=== PATIENT | male | born 1990 | race Caucasian/White ===

== ENCOUNTER 2016-10-23 05:40 | Observation (INO) | payer SELFPAY ==
--- NOTE | 2016-10-23 05:53 | ERPHSYRPT ---
- History of Present Illness Time Seen by Provider: 10/23/16 05:45 Source: EMS Exam Limitations: no limitations Physician History: ABOUT 1 HOUR AGO PT HAD A SEIZURE AT THE [facility] AND A 30 SECOND SEIZURE IN THE AMBULANCE. PT WILL NOT ANSWER MY QUESTIONS. Allergies/Adverse Reactions: No Known Drug Allergies Allergy (Unverified 10/23/16 07:08) Home Medications: Levetiracetam [Keppra] 10/23/16 [History] - Review of Systems All Other Systems: Unable due to condition (PT WILL NOT ANSWER MY QUESTIONS) - Nursing Vital Signs Nursing Vital Signs: Initial Vital Signs Temperature 97.3 F Temperature Source Axillary Pulse Rate 103 Respiratory Rate 18 Blood Pressure [Right Arm] 136/68 Pain Intensity 0 - Physical Exam General Appearance: lethargy Eye Exam: other (PERRL) Ears, Nose, Throat Exam: TMs normal, pharynx normal, moist mucous membranes Neck Exam: normal inspection Respiratory Exam: lungs clear Cardiovascular Exam: tachycardia Gastrointestinal/Abdomen Exam: soft, normal bowel sounds Back Exam: normal inspection Extremity Exam: normal inspection, No pedal edema Neurologic Exam: other (OBTUNDED) Skin Exam: warm, dry SpO2 Interpretation: normal SpO2: 95 Oxygen Delivery: Room Air - Course Nursing assessment & vital signs reviewed: Yes EKG Interpreted by Me: RATE ([id number]), Sinus Tach, NORMAL AXIS, NORMAL INTERVALS Ordered Tests: Active Orders 24 hr Category Date Time Status Accucheck STAT Care 10/23/16 05:52 Active Cath for Specimen-Straight STAT Care 10/23/16 05:52 Active EKG-ER Only STAT Care 10/23/16 06:45 Active IV Insertion STAT Care 10/23/16 05:52 Active CHEST 1 VIEW (PORTABLE) Stat Exams 10/23/16 06:46 Taken HEAD WITHOUT CONTRAST [CT] Stat Exams 10/23/16 05:56 Taken ACETAMINOPHEN Stat Lab 10/23/16 05:50 Completed AMYLASE Stat Lab 10/23/16 05:50 Completed CBC W DIFF Stat Lab 10/23/16 05:50 Completed CMP Stat Lab 10/23/16 05:50 Completed Ethyl Alcohol,Urine Stat Lab 10/23/16 05:50 Completed LIPASE Stat Lab 10/23/16 05:50 Completed MAGNESIUM Stat Lab 10/23/16 05:50 Completed Manual Differential NC Stat Lab 10/23/16 05:50 Completed SALICYLATE Stat Lab 10/23/16 05:50 Completed TROPONIN Q3H Lab 10/23/16 05:50 Completed TROPONIN Q3H Lab 10/23/16 10:00 Ordered TROPONIN Q3H Lab 10/23/16 13:00 Ordered TROPONIN Q3H Lab 10/23/16 16:00 Ordered TROPONIN Q3H Lab 10/23/16 19:00 Ordered UA W/ MICROSCOPIC Stat Lab 10/23/16 05:50 Completed Urine Triage Profile Stat Lab 10/23/16 05:50 Completed Medication Summary Generic Name Dose Route Start Last Admin Trade Name Freq PRN Reason Stop Dose Admin Sodium Chloride 1,000 mls @ 100 mls/hr 10/23/16 06:30 10/23/16 06:27 Sodium Chloride 0.9% 1000 Ml IV 11/22/16 06:29 100 mls/hr .Q10H OLIVA Administration Discontinued Medications Generic Name Dose Route Start Last Admin Trade Name Freq PRN Reason Stop Dose Admin Sodium Chloride Confirm 10/23/16 06:26 Sodium Chloride 0.9% 1000 Ml Administered 10/23/16 06:27 Dose 1,000 mls @ ud .ROUTE .STK-MED ONE Levetiracetam 1,000 mg/ 110 mls @ 220 mls/hr 10/23/16 06:42 Dextrose IV 10/23/16 07:11 STAT ONE Levetiracetam Confirm 10/23/16 07:05 Keppra 500 Mg/5 Ml Administered 10/23/16 07:06 Dose 1,000 mg .ROUTE .STK-MED ONE Lab/Rad Data: Laboratory Result Diagrams 10/23/16 05:50 10/23/16 05:50 Laboratory Results 10/23/16 10/23/16 10/23/16 Range/Units 05:50 05:50 05:50 WBC (4.0-10.5) K/mm3 RBC (4.1-5.6) M/mm3 Hgb (12.5-18.0) gm/dl Hct (42-50) % MCV (78-100) fl MCH (26-32) pg MCHC (32-36) g/dl RDW (11.5-14.0) % Plt Count (150-450) K/mm3 MPV (6-9.5) fl Gran % (36.0-66.0) % Lymphocytes % (24.0-44.0) % Monocytes % (0.0-12.0) % Eosinophils % (0.00-5.0) % Basophils % (0.0-0.4) % Segmented Neutrophils (36.-66.) % Band Neutrophils (0.0-2.0) % Lymphocytes (Manual) (24-44) % Monocytes (Manual) (0.0-12.0) % Basophils # (0-0.4) Differential Comment Platelet Estimate (NORMAL) Sodium (136-145) mEq/L Potassium (3.5-5.1) mEq/L Chloride (98-107) mEq/L Carbon Dioxide (21-32) mEq/L Anion Gap (5-15) MEQ/L BUN (9-20) mg/dL Creatinine (0.55-1.30) mg/dl Estimated GFR ML/MIN Glucose (70-110) MG/DL Calcium (8.5-10.1) mg/dL Magnesium 3.5 H (1.8-2.4) mg/dL Total Bilirubin (0.2-1.0) mg/dL AST (15-37) U/L ALT (12-78) U/L Alkaline Phosphatase (46-116) U/L Troponin I < 0.017 (0.000-0.056) ng/ml Serum Total Protein (6.4-8.2) gm/dL Albumin (3.4-5.0) g/dL Amylase 39 (25-115) U/L Lipase 82 (73-393) U/L Ur Collection Type Urine Color (YELLOW) Urine Appearance (CLEAR) Urine pH (5-6) Ur Specific [place] (1.005-1.025) Urine Protein (Negative) Urine Glucose (UA) (NEGATIVE) mg/dL Urine Ketones (NEGATIVE) Urine Nitrite (NEGATIVE) Urine Bilirubin (NEGATIVE) Urine Urobilinogen (0-1) mg/dL Urine WBC (Auto) (NEGATIVE) Urine RBC (Auto) (0-5) Dex/ul Urine Microscopic RBC (0-2) /HPF Amorphous Crystals (NEGATIVE) /HPF Urine Bacteria (NEGATIVE) /HPF Urine Mucus (NEGATIVE) /HPF Salicylates < 2.8 L (2.8-20.0) mg/dl Urine Opiates Level (NEGATIVE) Ur Methadone (NEGATIVE) Acetaminophen < 2.0 L (10-30) ug/ml Urine Barbiturates (NEGATIVE) Ur Phencyclidine (PCP) (NEGATIVE) Urine Amphetamine (NEGATIVE) U Benzodiazepine Level (NEGATIVE) Urine Cocaine (NEGATIVE) Urine Marijuana (THC) (NEGATIVE) Urine Ethyl Alcohol (0.00-20) mg/dl Specimen Received 10/23/16 10/23/16 10/23/16 Range/Units 05:50 05:50 05:50 WBC (4.0-10.5) K/mm3 RBC (4.1-5.6) M/mm3 Hgb (12.5-18.0) gm/dl Hct (42-50) % MCV (78-100) fl MCH (26-32) pg MCHC (32-36) g/dl RDW (11.5-14.0) % Plt Count (150-450) K/mm3 MPV (6-9.5) fl Gran % (36.0-66.0) % Lymphocytes % (24.0-44.0) % Monocytes % (0.0-12.0) % Eosinophils % (0.00-5.0) % Basophils % (0.0-0.4) % Segmented Neutrophils (36.-66.) % Band Neutrophils (0.0-2.0) % Lymphocytes (Manual) (24-44) % Monocytes (Manual) (0.0-12.0) % Basophils # (0-0.4) Differential Comment Platelet Estimate (NORMAL) Sodium (136-145) mEq/L Potassium (3.5-5.1) mEq/L Chloride (98-107) mEq/L Carbon Dioxide (21-32) mEq/L Anion Gap (5-15) MEQ/L BUN (9-20) mg/dL Creatinine (0.55-1.30) mg/dl Estimated GFR ML/MIN Glucose (70-110) MG/DL Calcium (8.5-10.1) mg/dL Magnesium (1.8-2.4) mg/dL Total Bilirubin (0.2-1.0) mg/dL AST (15-37) U/L ALT (12-78) U/L Alkaline Phosphatase (46-116) U/L Troponin I (0.000-0.056) ng/ml Serum Total Protein (6.4-8.2) gm/dL Albumin (3.4-5.0) g/dL Amylase (25-115) U/L Lipase (73-393) U/L Ur Collection Type CATH Urine Color YELLOW (YELLOW) Urine Appearance CLEAR (CLEAR) Urine pH 5.5 5.5 (5-6) Ur Specific [place] >=1.030 (1.005-1.025) Urine Protein 100 (Negative) Urine Glucose (UA) NEGATIVE (NEGATIVE) mg/dL Urine Ketones NEGATIVE (NEGATIVE) Urine Nitrite NEGATIVE (NEGATIVE) Urine Bilirubin NEGATIVE (NEGATIVE) Urine Urobilinogen 0.2 (0-1) mg/dL Urine WBC (Auto) NEGATIVE (NEGATIVE) Urine RBC (Auto) MODERATE (0-5) Dex/ul Urine Microscopic RBC 2-5 (0-2) /HPF Amorphous Crystals FEW (NEGATIVE) /HPF Urine Bacteria FEW (NEGATIVE) /HPF Urine Mucus MODERATE (NEGATIVE) /HPF Salicylates (2.8-20.0) mg/dl Urine Opiates Level NEG. (NEGATIVE) Ur Methadone NEG. (NEGATIVE) Acetaminophen (10-30) ug/ml Urine Barbiturates NEG. (NEGATIVE) Ur Phencyclidine (PCP) NEG. (NEGATIVE) Urine Amphetamine NEG. (NEGATIVE) U Benzodiazepine Level NEG. (NEGATIVE) Urine Cocaine NEG. (NEGATIVE) Urine Marijuana (THC) NEG. (NEGATIVE) Urine Ethyl Alcohol 2 (0.00-20) mg/dl Specimen Received 10/23/16 0600 10/23/16 10/23/16 Range/Units 05:50 05:50 WBC 14.3 H (4.0-10.5) K/mm3 RBC 5.68 H (4.1-5.6) M/mm3 Hgb 18.5 H (12.5-18.0) gm/dl Hct 54.6 H (42-50) % MCV 96.1 (78-100) fl MCH 32.5 H (26-32) pg MCHC 33.9 (32-36) g/dl RDW 12.3 (11.5-14.0) % Plt Count 354 (150-450) K/mm3 MPV 10.7 H (6-9.5) fl Gran % 64.0 (36.0-66.0) % Lymphocytes % 20.0 L (24.0-44.0) % Monocytes % 15.5 H (0.0-12.0) % Eosinophils % 0.3 (0.00-5.0) % Basophils % 0.2 (0.0-0.4) % Segmented Neutrophils 53 (36.-66.) % Band Neutrophils 6 H (0.0-2.0) % Lymphocytes (Manual) 26 (24-44) % Monocytes (Manual) 15 H (0.0-12.0) % Basophils # 0.03 (0-0.4) Differential Comment NORMAL Platelet Estimate NORMAL (NORMAL) Sodium 138 (136-145) mEq/L Potassium 3.8 (3.5-5.1) mEq/L Chloride 97 L (98-107) mEq/L Carbon Dioxide 8.2 L* (21-32) mEq/L Anion Gap 36.7 H (5-15) MEQ/L BUN 21 H (9-20) mg/dL Creatinine 1.87 H (0.55-1.30) mg/dl Estimated GFR 47 ML/MIN Glucose 216 H (70-110) MG/DL Calcium 9.6 (8.5-10.1) mg/dL Magnesium (1.8-2.4) mg/dL Total Bilirubin 1.2 H (0.2-1.0) mg/dL AST 20 (15-37) U/L ALT 46 (12-78) U/L Alkaline Phosphatase 108 (46-116) U/L Troponin I (0.000-0.056) ng/ml Serum Total Protein 8.8 H (6.4-8.2) gm/dL Albumin 4.4 (3.4-5.0) g/dL Amylase (25-115) U/L Lipase (73-393) U/L Ur Collection Type Urine Color (YELLOW) Urine Appearance (CLEAR) Urine pH (5-6) Ur Specific [place] (1.005-1.025) Urine Protein (Negative) Urine Glucose (UA) (NEGATIVE) mg/dL Urine Ketones (NEGATIVE) Urine Nitrite (NEGATIVE) Urine Bilirubin (NEGATIVE) Urine Urobilinogen (0-1) mg/dL Urine WBC (Auto) (NEGATIVE) Urine RBC (Auto) (0-5) Dex/ul Urine Microscopic RBC (0-2) /HPF Amorphous Crystals (NEGATIVE) /HPF Urine Bacteria (NEGATIVE) /HPF Urine Mucus (NEGATIVE) /HPF Salicylates (2.8-20.0) mg/dl Urine Opiates Level (NEGATIVE) Ur Methadone (NEGATIVE) Acetaminophen (10-30) ug/ml Urine Barbiturates (NEGATIVE) Ur Phencyclidine (PCP) (NEGATIVE) Urine Amphetamine (NEGATIVE) U Benzodiazepine Level (NEGATIVE) Urine Cocaine (NEGATIVE) Urine Marijuana (THC) (NEGATIVE) Urine Ethyl Alcohol (0.00-20) mg/dl Specimen Received - Progress Progress Note: 10/23/16 07:11 PT IS ALERT AND ORIENTED NOW & DENIES ANY CHEST PAIN, SHORTNESS OF AIR, NAUSEA, VOMITING, ABDOMINAL PAIN, TINGLING/NUMBNESS, WEAKNESS, HEADACHE. PT STATES HE TAKES KEPPRA ONCE/DAY BUT HAS NOT HAD ANY FOR THE PAST MONTH. Discussed with : Sherwin (OBS ICE - [id number]) - Departure Time of Disposition: 07:14 Departure Disposition: Observation Clinical Impression: SEIZURE, TACHYCARDIA Condition: Fair Critical Care Time: No
[2016-10-23 06:07] LABS: BASOPHIL % 0.2 % (0.0-0.4); Eosinophil % 0.3 % (0.00-5.0); Mean Cell Volume 96.1 fl (78-100); Mean Platelet Volume 10.7 fl (6-9.5); Monocytes % 15.5 % (0.0-12.0); Platelet Count 354 K/mm3 (150-450); Red Blood Count 5.68 M/mm3 (4.1-5.6); Red Cell Distribution Width 12.3 % (11.5-14.0); White Blood Count 14.3 K/mm3 (4.0-10.5)
[2016-10-23 06:20] LABS: Bacteria FEW /HPF (NEGATIVE); COMPLETE URINE MICROSCOPIC? YES; Collection Type CATH; Mucus MODERATE /HPF (NEGATIVE); Ph 5.5 (5-6)
[2016-10-23] MEDS ORDERED: Sodium Chloride 0.9% 1000 ML 1,000 ML ONE (06:26)
[2016-10-23 06:27] LABS: Mean Corpuscular Hemoglobin 32.5 pg (26-32)
[2016-10-23 06:29] LABS: ALBUMIN 4.4 g/dL (3.4-5.0); ANION GAP 36.7 MEQ/L (5-15); BILIRUBIN,TOTAL 1.2 mg/dL (0.2-1.0); MAGNESIUM 3.5 mg/dL (1.8-2.4); Potassium 3.8 mEq/L (3.5-5.1); Total Protein 8.8 gm/dL (6.4-8.2)
[2016-10-23] MEDS ORDERED: Sodium Chloride 0.9% 1000 ML 1,000 ML IV SCH (06:30)
[2016-10-23 06:31] LABS: ACETAMINOPHEN < 2.0 ug/ml (10-30); Carbon Dioxide 8.2 mEq/L (21-32)
[2016-10-23 06:33] LABS: BAND 6 % (0.0-2.0); Total Cells Counted 100
[2016-10-23 06:34] LABS: Platelet Estimate NORMAL (NORMAL)
[2016-10-23] MEDS ORDERED: Keppra 500 MG/5 ML*** 1,000 MG in D5w 100ML Mini Bag 100 ML 100 ML IV ONE (06:42)
[2016-10-23] MEDS ORDERED: Keppra 500 MG/5 ML ONE (07:05)
[2016-10-23] MEDS ORDERED: D5w 100ML Mini Bag 100 ML 100 ML IV ONE (07:09)
[2016-10-23] MEDS ORDERED: Phenergan 25 MG INJ IV PRN (08:11)
[2016-10-23] MEDS ORDERED: TYLENOL 325 MG PO PRN (08:11)
[2016-10-23] MEDS ORDERED: VALIUM 10 MG/2 ML SYRINGE IV PRN (08:11)
[2016-10-23] MEDS: Sodium Chloride 0.9% 1000 ML 1,000 ML IV SCH ×3 (08:18→22:57)
--- NOTE | 2016-10-23 09:22 | XRAY ---
Indication: Acute mental status change. History of seizures. Multiple contiguous axial images obtained through the head without contrast. Comparison: None Normal appearing brain parenchyma, ventricles, and bony calvarium. Visualized paranasal sinuses and mastoid air cells are pneumatized and clear. Impression: Normal CT head without contrast exam. Comment: Preliminary interpretation was made by [facility]. No discrepancy. CT DI 68.15
--- NOTE | 2016-10-23 09:22 | XRAY ---
Indication: Tachycardia. Comparison: None Portable apical lordotic chest demonstrates normal heart, lungs, and bony thorax.
[2016-10-23] MEDS ORDERED: KEPPRA 500 MG PO SCH (10:00)
[2016-10-23 12:18] LABS: BASOPHIL % 0.2 % (0.0-0.4); Lymphocytes % 11.7 % (24.0-44.0); Mean Cell Volume 90.3 fl (78-100); Mean Platelet Volume 10.2 fl (6-9.5); Monocytes % 14.1 % (0.0-12.0); Platelet Count 218 K/mm3 (150-450); Red Blood Count 4.84 M/mm3 (4.1-5.6); White Blood Count 6.6 K/mm3 (4.0-10.5)
[2016-10-23 12:48] LABS: ALBUMIN 3.4 g/dL (3.4-5.0); ALKALINE PHOSPHATASE 72 U/L (46-116); BILIRUBIN,TOTAL 1.2 mg/dL (0.2-1.0); BLOOD UREA NITROGEN 23 mg/dL (9-20); CHLORIDE 104 mEq/L (98-107); Carbon Dioxide 20.7 mEq/L (21-32); Glucose 107 MG/DL (70-110); MAGNESIUM 2.9 mg/dL (1.8-2.4); Potassium 3.5 mEq/L (3.5-5.1); SGOT/AST 22 U/L (15-37); SGPT/ALT 36 U/L (12-78); SODIUM 137 mEq/L (136-145); Total Protein 6.5 gm/dL (6.4-8.2)
[2016-10-23 12:50] LABS: TROPONIN < 0.017 ng/ml (0.000-0.056)
--- NOTE | 2016-10-23 16:36 | HP ---
CHIEF COMPLAINT: Seizure. HISTORY OF PRESENT ILLNESS: Patient is a 26 y/o [facility] patient with a known seizure disorder. According to his parents, he apparently had used K2 afterwards having a significant neurologic event which then triggered his seizures which he has had grand mal seizures intermittently since that time. He has previously been seen by a neurologist and placed on Keppra, but he has not been taking his Keppra on a regular basis. He reports he has no one to write his medications and he does not have a family physician either. The patient's medical history is otherwise unremarkable. HOME MEDICATIONS: He takes no other medications. ALLERGIES: HE HAS NKDA. PHYSICAL EXAMINATION: Initially, on my evaluation, the patient was lethargic, but would awaken shortly for brief periods of time to answer questions appropriately, but then drift back off to sleep again. The patient had been loaded with Keppra 1000 mg in the Emergency Room prior to my time of the evaluation. HEENT: Appeared to be normocephalic and atraumatic. Pupils equal, round, and reactive to light. Extraocular movements intact. Oropharynx was pink and moist. NECK: Supple without lymphadenopathy, thyromegaly, or JVD. CHEST: Clear to auscultation with good air movement bilaterally. HEART: Regular rate and rhythm with murmurs, rubs, or gallops. ABDOMEN: Soft, nontender, nondistended without hepatosplenomegaly or masses. EXTREMITIES: Without cyanosis, clubbing, or edema. NEURO: Again, the patient is somewhat obtunded, but will arouse to verbal stimuli. No focal deficits were apparent. LABORATORY STUDIES: Showed a WBC of 14,300, Hgb 18.5, platelet count 354,000. Urine drug screen was negative. ETOH was 2. UA showed a specific gravity greater than 1.030. There was protein present. There were 2-5 RBC per high powered field. He had a troponin of less than 0.017. He had a sugar of 216, BUN 21, creatinine 1.87. He had sodium 138, potassium 3.8. CO2 was 8.2. Acetaminophen and salicylate levels were essentially negative. His magnesium after a bolus was up to 3.5. Amylase and lipase were normal. He had a chest x-ray which was reported as essentially negative. CT scan of the head without contrast was normal. The patient did have a teleneurology consultation who recommended continuing the Keppra at 500 mg bid and hold on to him 24 hours prior to sending him home. I discussed this with the patient and his family and the fact that he should not be driving for 6 months after the seizure until he is seizure free for 6 months. We will recheck the patient's labs in the morning and otherwise anticipate an recruitment consultant discharge barring any further seizure activity.
[2016-10-23] MEDS ORDERED: TYLENOL EXTRA STRENGTH 500 MG PO PRN (16:42)
[2016-10-23] MEDS: KEPPRA 500 MG PO SCH (18:44)
[2016-10-23] MEDS: MOTRIN 400 MG PO PRN (18:44)
[2016-10-24] MEDS: MOTRIN 400 MG PO PRN (05:30)
[2016-10-24] MEDS: KEPPRA 500 MG PO SCH (05:57)
[2016-10-24] MEDS: Sodium Chloride 0.9% 1000 ML 1,000 ML IV SCH (05:57)
[2016-10-24 07:36] VITALS: BP 119/70; PULSE 94; O2SAT 94
--- NOTE | 2016-10-24 09:14 | PCM.DCORD ---
- Discharge Discharge Date: 10/24/16 Disposition: Home, Self-Care Condition: Fair Prescriptions: Continue Levetiracetam [Keppra] 500 mg PO BID #180 tablet Additional Instructions: no driving, swimming, ladders, or operating machinery Follow up with: TIGRE HADDAD [Primary Care Provider] - 1 Week
--- NOTE | 2016-10-24 09:16 | PCM.DS ---
Discharge Summary Date of Admission: 10/23/16 07:55 Date of Discharge: 10/24/16 Admitting Physician: TIGRE HADDAD Primary Care Provider: TIGRE HADDAD Allergies Allergies No Known Drug Allergies Allergy (Unverified 10/23/16 07:08) Hospital Summary - Hospital Course Hospital Course: Mr. Piña has history of seizures in the past which have been controlled on keppra but he did not have a regular doctor and was no longer taking the medication. He had a grand mal seizure while at work and a second in the ambulance on the ride to the ED. He was given IV Keppra and observed with no new seizure activity and full neurologic recovery. He did have myalgias but otherwise was feeling well. Tele neurology was consulted and agreed with continue keppra and seizure precautions which were explained to him in detail including no driving, ladders, swimming, working in high or dangerous places, or operating machinery. - Vitals & Intake/Output Vital Signs: Vital Signs Temperature 98.5 F 10/24/16 07:33 Pulse Rate 94 H 10/24/16 07:33 Respiratory Rate 16 10/24/16 07:33 Blood Pressure 119/70 10/24/16 07:33 O2 Sat by Pulse Oximetry 94 L 10/24/16 07:33 Oxygen-Last Documented O2 Percentage 2 Liters = 28% Intake & Output: Intake & Output 10/21/16 10/22/16 10/23/16 10/24/16 11:59 11:59 11:59 11:59 Intake Total 3873 Output Total 1800 Balance 2073 Weight 75.551 kg 78.381 kg - Lab Result Diagrams: 10/23/16 12:04 10/23/16 12:04 Lab Results-Last 24 Hrs: Lab Results-Last 24 Hours 10/23/16 10/23/16 Range/Units 12:04 12:04 WBC 6.6 (4.0-10.5) K/mm3 RBC 4.84 (4.1-5.6) M/mm3 Hgb 15.5 (12.5-18.0) gm/dl Hct 43.7 (42-50) % MCV 90.3 (78-100) fl MCH 32.0 (26-32) pg MCHC 35.5 (32-36) g/dl RDW 12.0 (11.5-14.0) % Plt Count 218 (150-450) K/mm3 MPV 10.2 H (6-9.5) fl Gran % 74.0 H (36.0-66.0) % Lymphocytes % 11.7 L (24.0-44.0) % Monocytes % 14.1 H (0.0-12.0) % Eosinophils % 0.0 (0.00-5.0) % Basophils % 0.2 (0.0-0.4) % Basophils # 0.01 (0-0.4) Sodium 137 (136-145) mEq/L Potassium 3.5 (3.5-5.1) mEq/L Chloride 104 (98-107) mEq/L Carbon Dioxide 20.7 L (21-32) mEq/L Anion Gap 16.0 H (5-15) MEQ/L BUN 23 H (9-20) mg/dL Creatinine 1.63 H (0.55-1.30) mg/dl Estimated GFR 55 ML/MIN Glucose 107 (70-110) MG/DL Calcium 7.9 L (8.5-10.1) mg/dL Magnesium 2.9 H (1.8-2.4) mg/dL Total Bilirubin 1.2 H (0.2-1.0) mg/dL AST 22 (15-37) U/L ALT 36 (12-78) U/L Alkaline Phosphatase 72 (46-116) U/L Troponin I < 0.017 (0.000-0.056) ng/ml Serum Total Protein 6.5 (6.4-8.2) gm/dL Albumin 3.4 (3.4-5.0) g/dL - Radiology Exams Ordered Rad Exams-Entire Visit: Radiology Procedures Category Date Time Status MRI BRAIN W/O CONTRAST [MRI] Urgent Exams 10/23/16 16:01 Ordered Discharge Exam General Appearance: no apparent distress, alert Neurologic Exam: alert, oriented x 3, cooperative, normal mood/affect, nml cerebellar function, sensation nml, No motor deficits Skin Exam: normal color, warm, dry Eye Exam: PERRL, EOMI, eyes nml inspection Ears, Nose, Throat Exam: normal ENT inspection, pharynx normal, moist mucous membranes Neck Exam: normal inspection, non-tender, supple, full range of motion Respiratory Exam: normal breath sounds, lungs clear, No respiratory distress Cardiovascular Exam: regular rate/rhythm, normal heart sounds Gastrointestinal/Abdomen Exam: soft, No tenderness, No mass Extremity Exam: normal inspection, normal range of motion Back Exam: normal inspection, normal range of motion, No CVA tenderness, No vertebral tenderness Male Genitalia Exam: deferred Rectal Exam: deferred Final Diagnosis/Problem List - Final Discharge Diagnosis/Problem (1) Seizure disorder Status: Acute (2) Acute kidney injury Status: Acute Assessment & Plan: suspected secondary to prolonged seizure activity advise outpatient recheck and followup - Discharge Disposition: Home, Self-Care Condition: Good Prescriptions: Continue Levetiracetam [Keppra] 500 mg PO BID #180 tablet Instructions: Seizure Disorder -- Adult Additional Instructions: no driving, swimming, ladders, or operating machinery Follow up with: TIGRE HADDAD [Primary Care Provider] - 1 Week Forms: Discharge Instructions
== END 2016-10-24 09:20 | disposition home or self-care (01) ==
LOC: ED 05:40 → ICU 07:55
PROVIDERS: ADMIT Family Medicine; ATTEND Family Medicine
DX: G40.909 Epilepsy, unspecified, not intractable, without status epilepticus (principal); N17.9 Acute kidney failure, unspecified; Z79.899 Other long term (current) drug therapy
CPT/HCPCS: 36000; 36415; 70450; 71010; 80053; 80307; 80320; 81000; 82150; 82962; 83690; 83735; 83986; 84484; 85025; 93005; 96360; 99284; 99285; G0378; G0481; J1953; P9612